=== PATIENT | female | born 1975 | race Caucasian/White ===

== ENCOUNTER 2016-08-10 15:33 | Inpatient (IN) | payer OTHER ==
[~2016-08-10] VITALS: Ht 157.5 cm; Wt 103.4 kg
[2016-08-10 18:36] LABS: BASOPHIL % 0.6 % (0-2); PLATELET COUNT 304 x10^3mcL (130-400); RED CELL DISTRIBUTION WIDTH 13.9 % (11.5-14.5)
[2016-08-10 18:41] LABS: CALCIUM 8.7 mg/dL (8.5-10.1); CARBON DIOXIDE 21.3 mmol/L (21-32); CHLORIDE SERUM 107 mmol/L (98-107); CREATININE SERUM 0.8 mg/dL (0.6-1.0); GFR1 > 60 mL/min; GLUCOSE SERUM 101 mg/dL (74-106); POTASSIUM SERUM 3.8 mmol/L (3.5-5.1); SODIUM SERUM 139 mmol/L (136-145)
[2016-08-10 18:53] LABS: ALBUMIN 3.7 g/dL (3.4-5.0); ALKALINE PHOSPHATASE 66 U/L (46-116); ALT/SGPT 25 U/L (14-59); AST/SGOT 11 U/L (15-37); BILIRUBIN TOTAL 0.2 mg/dL (0.20-1.00); TOTAL PROTEIN, SERUM 7.8 g/dL (6.4-8.2)
[2016-08-10] MEDS ORDERED: CYCLOBENZAPRINE10 M1 PO (19:11)
[2016-08-10] MEDS ORDERED: COZAAR50 M1 PO (19:13)
[2016-08-10] MEDS ORDERED: APAP/HYDROCODON1 T15 PO (19:14)
[2016-08-10] MEDS ORDERED: OMEPRAZOLE20 M4 PO (19:14)
[2016-08-10] MEDS ORDERED: BUSPIRONE HCL15 MG PO (19:15)
[2016-08-10] MEDS ORDERED: FLUOXETINE40 MG PO (19:16)
[2016-08-10] MEDS ORDERED: TRAZODONE50 M1 PO (19:16)
[2016-08-10 20:21] LABS: CHOLESTEROL/HDL RATIO 3.8; MAGNESIUM 2.1 mg/dL (1.8-2.4); PHOSPHOROUS 3.3 mg/dL (2.5-4.9)
[2016-08-10 20:26] LABS: T3 TOTAL 1.35 ng/mL
[2016-08-10 20:27] LABS: FREE T4 0.89 ng/dL (0.76-1.46); FREE THYROXINE INDEX 1.8 ug/dL (1.4-4.5); T4(THYROXINE) 6.8 ug/dL (4.7-13.3)
[2016-08-10 20:51] VITALS: BP 111/66
[2016-08-10 21:26] VITALS: BP 111/61
[2016-08-10 21:35] LABS: UA SPECIFIC GRAVITY 1.015 (1.005-1.035); microscopic required? YES; urine erythrocyte 1+ (NEGATIVE)
[2016-08-10 21:47] LABS: AMPHETAMINE QUAL UR NONE DETECTED (NEG <=1000)
[2016-08-11 05:13] VITALS: BP 109/61
[2016-08-11 05:39] LABS: BASOPHIL % 0.4 % (0-2); PLATELET COUNT 262 x10^3mcL (130-400); RED CELL DISTRIBUTION WIDTH 14.2 % (11.5-14.5)
[2016-08-11 05:44] LABS: CALCIUM 8.2 mg/dL (8.5-10.1); CARBON DIOXIDE 22.4 mmol/L (21-32); CHLORIDE SERUM 109 mmol/L (98-107); CREATININE SERUM 0.7 mg/dL (0.6-1.0); GFR1 > 60 mL/min; GLUCOSE SERUM 118 mg/dL (74-106); POTASSIUM SERUM 3.8 mmol/L (3.5-5.1); SODIUM SERUM 141 mmol/L (136-145)
[2016-08-11 10:29] VITALS: BP 116/62
[2016-08-11 12:41] VITALS: BP 117/63
[2016-08-11 16:53] VITALS: BP 116/62
[2016-08-11 20:10] VITALS: BP 111/66
[2016-08-12] VITALS (8 sets, daily range): BP systolic 105–134; BP diastolic 59–78
[2016-08-12 06:21] LABS: BASOPHIL % 0.1 % (0-2); PLATELET COUNT 260 x10^3mcL (130-400); RED CELL DISTRIBUTION WIDTH 14.1 % (11.5-14.5)
[2016-08-12 06:41] LABS: CALCIUM 8.1 mg/dL (8.5-10.1); CHLORIDE SERUM 109 mmol/L (98-107); CREATININE SERUM 0.8 mg/dL (0.6-1.0); GFR1 > 60 mL/min; GLUCOSE SERUM 119 mg/dL (74-106); MAGNESIUM 1.9 mg/dL (1.8-2.4); PHOSPHOROUS 3.8 mg/dL (2.5-4.9); POTASSIUM SERUM 3.8 mmol/L (3.5-5.1); SODIUM SERUM 143 mmol/L (136-145)
[2016-08-12] MEDS ORDERED: ECO81 PO (08:00)
[2016-08-13 05:40] VITALS: BP 124/73
[2016-08-13 06:19] LABS: BASOPHIL % 0.2 % (0-2); PLATELET COUNT 261 x10^3mcL (130-400); RED CELL DISTRIBUTION WIDTH 14.4 % (11.5-14.5)
[2016-08-13 06:41] LABS: CALCIUM 7.6 mg/dL (8.5-10.1); CARBON DIOXIDE 19.8 mmol/L (21-32); CHLORIDE SERUM 107 mmol/L (98-107); CREATININE SERUM 0.6 mg/dL (0.6-1.0); GFR1 > 60 mL/min; GLUCOSE SERUM 112 mg/dL (74-106); MAGNESIUM 2.2 mg/dL (1.8-2.4); POTASSIUM SERUM 3.6 mmol/L (3.5-5.1); SODIUM SERUM 138 mmol/L (136-145)
[2016-08-13 09:44] VITALS: BP 115/65
[2016-08-13 17:15] VITALS: BP 113/64
[2016-08-13 21:01] VITALS: BP 107/64
[2016-08-14 06:06] VITALS: BP 114/57
[2016-08-14 06:44] LABS: BASOPHIL % 0.3 % (0-2); PLATELET COUNT 253 x10^3mcL (130-400); RED CELL DISTRIBUTION WIDTH 14.2 % (11.5-14.5)
[2016-08-14 06:56] LABS: CARBON DIOXIDE 22.7 mmol/L (21-32); CHLORIDE SERUM 107 mmol/L (98-107); CREATININE SERUM 0.9 mg/dL (0.6-1.0); GFR1 > 60 mL/min; GLUCOSE SERUM 93 mg/dL (74-106); MAGNESIUM 1.9 mg/dL (1.8-2.4); PHOSPHOROUS 2.9 mg/dL (2.5-4.9); POTASSIUM SERUM 3.7 mmol/L (3.5-5.1); SODIUM SERUM 139 mmol/L (136-145)
[2016-08-14 09:13] VITALS: BP 124/81
[2016-08-14] MEDS ORDERED: MIRALAX17 GM PO (14:43)
[2016-08-14] MEDS ORDERED: REG5 PO (14:43)
== END 2016-08-14 15:43 | disposition home or self-care (01) | DRG 243 ==
LOC: ED 15:33 → MU 18:53 → DU 18:53 → MU 08-12 09:53
PROVIDERS: Emergency Medicine; Internal Medicine Gastroenterology; ADMIT Family Medicine
PROC: 0DB68ZX Excision of Stomach, Via Natural or Artificial Opening Endoscopic, Diagnostic (ICD-10-PCS; principal; 2016-08-12 11:30)
DX: K21.9 Gastro-esophageal reflux disease without esophagitis (principal); Z68.41 Body mass index [BMI] 40.0-44.9, adult; E66.01 Morbid (severe) obesity due to excess calories; K31.84 Gastroparesis; F33.1 Major depressive disorder, recurrent, moderate; I10 Essential (primary) hypertension; M48.02 Spinal stenosis, cervical region; M94.0 Chondrocostal junction syndrome [Tietze]; R73.03 Prediabetes; G89.29 Other chronic pain; M54.9 Dorsalgia, unspecified; F41.1 Generalized anxiety disorder; E78.1 Pure hyperglyceridemia; R31.9 Hematuria, unspecified; M19.90 Unspecified osteoarthritis, unspecified site; Z90.49 Acquired absence of other specified parts of digestive tract; Z90.89 Acquired absence of other organs; Z79.899 Other long term (current) drug therapy; Z88.5 Allergy status to narcotic agent
CPT/HCPCS: 43235; 80307; 83880; 84439; C9113; J0696; J1100; J1200; J1610; J1885; J2250; J2310; J2405; J2765; J3010; J3490; J7030; Q0092; Q9963; Q9967

== ENCOUNTER 2017-03-21 15:13 | Emergency (ER) | payer OTHER ==
[~2017-03-21 15:13] MED LIST: APAP/HYDROCODON1 T15 PO; BUSPIRONE HCL15 MG PO; COZAAR50 M1 PO; CYCLOBENZAPRINE10 M1 PO; ECO81 PO; FLUOXETINE40 MG PO; MIRALAX17 GM PO; OMEPRAZOLE20 M4 PO; REG5 PO; TRAZODONE50 M1 PO
[2017-03-21 18:54] VITALS: BP 132/77
== END 2017-03-21 18:54 | disposition home or self-care (01) ==
LOC: ED 15:13
DX: S70.01XA Contusion of right hip, initial encounter (principal); M54.5 Low back pain; I10 Essential (primary) hypertension; N93.9 Abnormal uterine and vaginal bleeding, unspecified; G47.00 Insomnia, unspecified; Z88.8 Allergy status to other drugs, medicaments and biological substances; Z88.5 Allergy status to narcotic agent; Z79.899 Other long term (current) drug therapy; W18.30XA Fall on same level, unspecified, initial encounter; Y93.89 Activity, other specified; Y99.8 Other external cause status; Y92.89 Other specified places as the place of occurrence of the external cause
CPT/HCPCS: J1885

== ENCOUNTER 2017-04-04 16:10 | Emergency (ER) | payer OTHER ==
[~2017-04-04] VITALS: Ht 157.5 cm; Wt 98.0 kg
[2017-04-04 17:56] LABS: BASOPHIL % 0.6 % (0-2); PLATELET COUNT 284 x10^3mcL (130-400); RED CELL DISTRIBUTION WIDTH 13.9 % (11.5-14.5)
[2017-04-04 17:59] LABS: CALCIUM 9.4 mg/dL (8.5-10.1); CARBON DIOXIDE 25.5 mmol/L (21-32); CHLORIDE SERUM 103 mmol/L (98-107); CREATININE SERUM 0.9 mg/dL (0.6-1.0); GFR1 > 60 mL/min; GLUCOSE SERUM 107 mg/dL (74-106); POTASSIUM SERUM 3.4 mmol/L (3.5-5.1); SODIUM SERUM 138 mmol/L (136-145)
[2017-04-04 18:04] LABS: ALBUMIN 3.7 g/dL (3.4-5.0); ALKALINE PHOSPHATASE 55 U/L (46-116); ALT/SGPT 26 U/L (14-59); AST/SGOT 14 U/L (15-37); BILIRUBIN TOTAL 0.29 mg/dL (0.20-1.00); TOTAL PROTEIN, SERUM 7.8 g/dL (6.4-8.2)
[2017-04-04 20:11] VITALS: BP 121/70
== END 2017-04-04 20:11 | disposition home or self-care (01) ==
LOC: ED 16:10
PROVIDERS: Emergency Medicine
DX: R07.9 Chest pain, unspecified (principal); R11.2 Nausea with vomiting, unspecified; F41.9 Anxiety disorder, unspecified; I10 Essential (primary) hypertension; Z88.5 Allergy status to narcotic agent; Z88.8 Allergy status to other drugs, medicaments and biological substances; F32.9 Major depressive disorder, single episode, unspecified
CPT/HCPCS: 83880; J2405; J3490

== ENCOUNTER 2017-06-11 00:35 | Inpatient (IN) | payer OTHER ==
[~2017-06-11] VITALS: Ht 160 cm; Wt 95.7 kg
[2017-06-11 00:51] VITALS: Ht 160 cm; Wt 95.7 kg
[2017-06-11 02:29] LABS: BASOPHIL % 1.5 % (0-2); PLATELET COUNT 283 x10^3mcL (130-400); RED CELL DISTRIBUTION WIDTH 12.9 % (11.5-14.5)
[2017-06-11 02:39] LABS: CALCIUM 8.4 mg/dL (8.5-10.1); CARBON DIOXIDE 23.9 mmol/L (21-32); CHLORIDE SERUM 103 mmol/L (98-107); GFR1 > 60 mL/min; GLUCOSE SERUM 163 mg/dL (74-106); POTASSIUM SERUM 4.3 mmol/L (3.5-5.1); SODIUM SERUM 137 mmol/L (136-145)
[2017-06-11 02:44] LABS: ALBUMIN 3.5 g/dL (3.4-5.0); ALKALINE PHOSPHATASE 52 U/L (46-116); ALT/SGPT 32 U/L (14-59); AST/SGOT 26 U/L (15-37); BILIRUBIN TOTAL 0.3 mg/dL (0.20-1.00); LIPASE 86 IU/L (73-393); TOTAL PROTEIN, SERUM 7.2 g/dL (6.4-8.2)
[2017-06-11] MEDS ORDERED: NEU300 PO (05:21)
[2017-06-11] MEDS ORDERED: IBUPROFEN400 MG PO (05:22)
[2017-06-11] MEDS ORDERED: BUTRANS20 MCG/HR TOP (05:23)
[2017-06-11] MEDS ORDERED: PRAZOSIN HYDROCH1 MG PO (05:24)
[2017-06-11] MEDS ORDERED: METOPROLOL SUCC50 M2 PO (05:24)
[2017-06-11] MEDS ORDERED: TRAZODONE50 M1 PO (05:25)
[2017-06-11] MEDS ORDERED: XAN1 PO (05:25)
[2017-06-11] MEDS ORDERED: SEROQUEL25 MG (05:25)
[2017-06-11] MEDS ORDERED: BACLOFEN10 MG PO (05:26)
[2017-06-11] MEDS ORDERED: COLACE100 MG PO (05:27)
[2017-06-11] MEDS ORDERED: PERCOCET1 TA5 PO (05:27)
[2017-06-11 06:12] VITALS: BP 104/54
[2017-06-11 06:35] VITALS: BP 104/54
[2017-06-11 07:58] LABS: T3 TOTAL 0.91 ng/mL
[2017-06-11 08:54] LABS: CHOLESTEROL/HDL RATIO 3.8; MAGNESIUM 2.2 mg/dL (1.8-2.4); PHOSPHOROUS 2.3 mg/dL (2.5-4.9)
[2017-06-11 09:03] LABS: FREE T4 0.97 ng/dL (0.76-1.46); FREE THYROXINE INDEX 2.8 ug/dL (1.4-4.5)
[2017-06-11 09:09] VITALS: BP 91/41
[2017-06-11 11:57] VITALS: BP 91/41
[2017-06-11] MEDS ORDERED: LAC PO (11:57)
[2017-06-11] MEDS ORDERED: LEVAQUIN750 MG PO (11:57)
[2017-06-11] MEDS ORDERED: NORCO1 TA2 PO (11:58)
== END 2017-06-11 13:15 | disposition left against medical advice (07) ==
LOC: ED 00:35 → DU 05:03
PROVIDERS: Emergency Medicine; Family Medicine
DX: K81.0 Acute cholecystitis (principal); E83.39 Other disorders of phosphorus metabolism; I10 Essential (primary) hypertension; M48.02 Spinal stenosis, cervical region; Z88.8 Allergy status to other drugs, medicaments and biological substances; E11.9 Type 2 diabetes mellitus without complications; F41.8 Other specified anxiety disorders
CPT/HCPCS: 82962; 83880; 84439; J0696; J1170; J1885; J7030; Q0092; Q0162